=== PATIENT | female | born 1995 | race Caucasian/White ===

== ENCOUNTER 2018-07-16 03:37 | Emergency (ER) | payer OTHER ==
[2018-07-16] MEDS ORDERED: IBUPROFEN 200 MG TAB PO ONE (05:02)
[2018-07-16 05:19] LABS: Barbiturates NEGATIVE (NEGATIVE); Benzodiazepines NEGATIVE (NEGATIVE); Cocaine NEGATIVE (NEGATIVE); METHAMPHETAM NEGATIVE (NEGATIVE); Methadone NEGATIVE (NEGATIVE); Opiates NEGATIVE (NEGATIVE); Phencyclidine NEGATIVE (NEGATIVE); THC Cannibis NEGATIVE (NEGATIVE)
--- NOTE | 2018-07-16 05:39 | ER ---
Nurse's Notes [facility] Name: Bria Healy Age: 22 yrs Sex: Female : 1995 Arrival Date: 07/16/2018 Time: 03:42 Bed 5 Private MD: Beena Lee K Diagnosis: Abuse of non-psychoactive substances;Syncope and collapse;Superficial injury of head;Pain in left shoulder Presentation: 07/16 04:00 Presenting complaint: Patient states: she had a few drinks this evening and had smoked aa1 some marijuana and had a syncopal episode. Reports incident occurred around 0100 this am. States she also urinated on herself as well. C/O pain in L shoulder and L side of her head. Transition of care: patient was not received from another setting of care. Onset of symptoms was July 16, 2018 at 01:00. Risk Assessment: Do you want to hurt yourself or someone else? Patient reports no desire to harm self or others. Initial Sepsis Screen: Does the patient meet any 2 criteria? No. Patient's initial sepsis screen is negative. Does the patient have a suspected source of infection? No. Patient's initial sepsis screen is negative. Care prior to arrival: None. 04:00 Method Of Arrival: Ambulatory aa1 04:00 Acuity: ELILOTT 3 aa1 Historical: - Allergies: 04:04 PENICILLINS; aa1 - Home Meds: 04:04 Vyvanse 60 mg oral cap 1 cap once daily [Active]; CBD oil [Active]; aa1 - PMHx: 04:04 ADD/ADHD; aa1 - PSHx: 04:04 None; aa1 - Immunization history:: Adult Immunizations up to date. - Social history:: Smoking status: Patient/guardian denies using tobacco, Patient uses alcohol, only on a social basis. street drugs, marijuana. - Ebola Screening: : No symptoms or risks identified at this time. - Family history:: not pertinent. Screenin:06 Abuse screen: Denies threats or abuse. Denies injuries from another. Nutritional aa1 screening: No deficits noted. Tuberculosis screening: No symptoms or risk factors identified. Fall Risk None identified. Assessment: 04:06 General: Appears in no apparent distress. comfortable, Behavior is calm, cooperative, aa1 appropriate for age. Pain: Complains of pain in left side of head, anterior aspect of left shoulder and posterior aspect of left shoulder. Neuro: Level of Consciousness is awake, alert, obeys commands, Oriented to person, place, time, situation, Moves all extremities. Full function Gait is steady, Speech is normal, Pupils are PERRLA, Reports headache Denies blurred vision dizziness, diplopia. Cardiovascular: Denies chest pain, diaphoresis, palpitations, Heart tones S1 S2 present Rhythm is regular. Respiratory: Airway is patent Respiratory effort is even, unlabored, Respiratory pattern is regular, symmetrical. GI: No signs and/or symptoms were reported involving the gastrointestinal system. : No signs and/or symptoms were reported regarding the genitourinary system. EENT: No signs and/or symptoms were reported regarding the EENT system. Derm: Skin is intact, is healthy with good turgor, Skin is pink, warm \T\ dry. Musculoskeletal: Circulation, motion, and sensation intact. Capillary refill < 3 seconds, Range of motion: intact in all extremities. 05:00 Reassessment: Patient appears in no apparent distress at this time. Patient and/or aa1 family updated on plan of care and expected duration. Pain level reassessed. Patient is alert, oriented x 3, equal unlabored respirations, skin warm/dry/pink. Awaiting CT scan. 05:56 Reassessment: Patient appears in no apparent distress at this time. Patient and/or aa1 family updated on plan of care and expected duration. Pain level reassessed. Patient is alert, oriented x 3, equal unlabored respirations, skin warm/dry/pink. Pt has orders for d/c but CT has not been resulted yet. 06:55 Reassessment: Patient appears in no apparent distress at this time. Patient is alert, aa1 oriented x 3, equal unlabored respirations, skin warm/dry/pink. CT \T\ x-ray resulted. Per MD ok to d/c at this time. Discussed d/c \T\ f/u instructions with pt \T\ mother; denies questions or concerns at this time Patient states feeling better. Vital Signs: 04:04 BP 112 / 80; Pulse 95; Resp 16; Temp 97.9; Pulse Ox 100% on R/A; Weight 65.32 kg; aa1 Height 5 ft. 8 in. (172.72 cm); Pain 6/10; 05:04 BP 113 / 74; Pulse 68; Resp 18; Pulse Ox 99% on R/A; tl2 06:55 BP 117 / 65; Pulse 71; Resp 16; Pulse Ox 100% on R/A; Pain 2/10; aa1 04:04 Body Mass Index 21.89 (65.32 kg, 172.72 cm) aa1 ED Course: 03:42 Patient arrived in ED. al2 03:43 Beena Lee MD is Private Physician. al2 03:47 Navi Fournier MD is Attending Physician. maine 04:00 Winsome Nixon, RN is Primary Nurse. aa1 04:02 Triage completed. aa1 04:04 Arm band placed on right wrist. Patient placed in an exam room, on a stretcher. aa1 04:06 Patient has correct armband on for positive identification. Bed in low position. Call aa1 light in reach. Pulse ox on. NIBP on. 05:00 Urine collected: clean catch specimen. aa1 05:13 CT Head C Spine In Process Unspecified. EDMS 05:18 CT completed. Patient tolerated procedure well. Patient moved to CT via wheelchair. Patient moved back from CT. 05:25 X-ray completed. Patient tolerated procedure well. kw 05:26 Shoulder Left (2 View) XRAY In Process Unspecified. EDMS 05:39 Beena Lee MD is Referral Physician. [facility] 06:55 No provider procedures requiring assistance completed. Patient did not have IV access aa1 during this emergency room visit. Administered Medications: 05:03 Drug: Motrin 600 mg Route: PO; tl2 06:57 Follow up: Response: No adverse reaction; Pain is decreased aa1 Outcome: 05:39 Discharge ordered by . maine 06:55 Discharged to home ambulatory, with family. aa1 06:55 Condition: good 06:55 Discharge instructions given to patient, family, Instructed on discharge instructions, follow up and referral plans. medication usage, Demonstrated understanding of instructions, follow-up care, medications, Prescriptions given X 1. 06:58 Patient left the ED. aa1 Signatures: Dispatcher [employer] EDMS Winsome Nixon RN RN aa1 Navi Fournier MD MD cha Hagler, Ervin Ashley Baugh Shakila Romano RN RN tl2 Love, Chani al2
--- NOTE | 2018-07-16 05:39 | EDPHYS ---
Physician Documentation [facility] Name: Bria Healy Age: 22 yrs Sex: Female : 1995 Arrival Date: 07/16/2018 Time: 03:42 Bed 5 Private MD: Beena Lee K ED Physician Navi Fournier HPI: 07/16 04:37 This 22 yrs old Female presents to ER via Ambulatory with complaints of maine Syncope, Head Injury-Adult. 04:37 The patient has experienced syncope, became unresponsive, collapsed. Onset: The maine symptoms/episode began/occurred just prior to arrival. Duration: This was a single episode, that lasted 10 minute(s). Context: the episode(s) was witnessed, by a friend, occurred constitution party. Associated injury: Head/face: Left upper extremity: anterior aspect of left shoulder and posterior aspect of left shoulder. Associated signs and symptoms: The patient has no apparent associated signs or symptoms. The patient has not experienced similar symptoms in the past. Historical: - Allergies: 04:04 PENICILLINS; aa1 - Home Meds: 04:04 Vyvanse 60 mg oral cap 1 cap once daily [Active]; CBD oil [Active]; aa1 - PMHx: 04:04 ADD/ADHD; aa1 - PSHx: 04:04 None; aa1 - Immunization history:: Adult Immunizations up to date. - Social history:: Smoking status: Patient/guardian denies using tobacco, Patient uses alcohol, only on a social basis. street drugs, marijuana. - Ebola Screening: : No symptoms or risks identified at this time. - Family history:: not pertinent. ROS: 04:37 Constitutional: Negative for fever, chills, and weight loss, Eyes: Negative for injury, maine pain, redness, and discharge, ENT: Negative for injury, pain, and discharge, Neck: Negative for injury, pain, and swelling, Cardiovascular: Negative for chest pain, palpitations, and edema, Respiratory: Negative for shortness of breath, cough, wheezing, and pleuritic chest pain, Abdomen/GI: Negative for abdominal pain, nausea, vomiting, diarrhea, and constipation, Back: Negative for injury and pain, : Negative for injury, bleeding, discharge, and swelling, MS/Extremity: Negative for injury and deformity, Skin: Negative for injury, rash, and discoloration, Psych: Negative for depression, anxiety, suicide ideation, homicidal ideation, and hallucinations, Allergy/Immunology: Negative for hives, rash, and allergies, Endocrine: Negative for neck swelling, polydipsia, polyuria, polyphagia, and marked weight changes. 04:37 Neuro: Positive for headache, syncope, of the left quaker. Exam: 04:37 Constitutional: This is a well developed, well nourished patient who is awake, alert, maine and in no acute distress. Eyes: Pupils equal round and reactive to light, extra-ocular motions intact. Lids and lashes normal. Conjunctiva and sclera are non-icteric and not injected. Cornea within normal limits. Periorbital areas with no swelling, redness, or edema. ENT: Nares patent. No nasal discharge, no septal abnormalities noted. Tympanic membranes are normal and external auditory canals are clear. Oropharynx with no redness, swelling, or masses, exudates, or evidence of obstruction, uvula midline. Mucous membranes moist. Neck: Trachea midline, no thyromegaly or masses palpated, and no cervical lymphadenopathy. Supple, full range of motion without nuchal rigidity, or vertebral point tenderness. No Meningismus. Chest/axilla: Normal chest wall appearance and motion. Nontender with no deformity. No lesions are appreciated. Cardiovascular: Regular rate and rhythm with a normal S1 and S2. No gallops, murmurs, or rubs. Normal PMI, no JVD. No pulse deficits. Respiratory: Lungs have equal breath sounds bilaterally, clear to auscultation and percussion. No rales, rhonchi or wheezes noted. No increased work of breathing, no retractions or nasal flaring. Abdomen/GI: Soft, non-tender, with normal bowel sounds. No distension or tympany. No guarding or rebound. No evidence of tenderness throughout. Back: No spinal tenderness. No costovertebral tenderness. Full range of motion. Female : Normal external genitalia. Skin: Warm, dry with normal turgor. Normal color with no rashes, no lesions, and no evidence of cellulitis. Neuro: Awake and alert, GCS 15, oriented to person, place, time, and situation. Cranial nerves II-XII grossly intact. Motor strength 5/5 in all extremities. Sensory grossly intact. Cerebellar exam normal. Normal gait. 04:37 Head/face: Noted is contusion, that is superficial, of the left quaker. 04:37 Musculoskeletal/extremity: ROM: limited active range of motion, limited passive range of motion, in the anterior aspect of left shoulder and posterior aspect of left shoulder, Circulation is intact in all extremities. Sensation intact. Compartment Syndrome exam of affected extremity: is normal. DVT Exam: no swelling, negative Homans' sign noted on exam, no appreciated bluish discoloration, no erythema, no increased warmth, pain, tenderness. Vital Signs: 04:04 BP 112 / 80; Pulse 95; Resp 16; Temp 97.9; Pulse Ox 100% on R/A; Weight 65.32 kg; aa1 Height 5 ft. 8 in. (172.72 cm); Pain 6/10; 05:04 BP 113 / 74; Pulse 68; Resp 18; Pulse Ox 99% on R/A; tl2 06:55 BP 117 / 65; Pulse 71; Resp 16; Pulse Ox 100% on R/A; Pain 2/10; aa1 04:04 Body Mass Index 21.89 (65.32 kg, 172.72 cm) aa1 MDM: 03:47 Patient medically screened. [facility] 04:40 Data reviewed: vital signs, nurses notes, lab test result(s), radiologic studies, [facility] doppler, plain films. 07/16 04:36 Order name: UDS; Complete Time: 05:33 [facility] 07/16 05:01 Order name: Urine Dipstick--Ancillary (enter results) ms 07/16 04:36 Order name: CT Head C Spine [facility] 07/16 04:36 Order name: Shoulder Left (2 View) XRAY [facility] 07/16 04:36 Order name: Urine Dipstick-Ancillary (obtain specimen); Complete Time: 04:59 [facility] 07/16 04:36 Order name: Urine Test (obtain specimen); Complete Time: 04:59 [facility] 07/16 04:36 Order name: PO challenge: juice; Complete Time: 05:03 [facility] Administered Medications: 05:03 Drug: Motrin 600 mg Route: PO; tl2 06:57 Follow up: Response: No adverse reaction; Pain is decreased aa1 Disposition: 07/16/18 05:39 Discharged to Home. Impression: Abuse of non-psychoactive substances, Syncope and collapse, Superficial injury of head, Pain in left shoulder. - Condition is Stable. - Discharge Instructions: Head Injury, Pediatric, Substance Use Disorder, Shoulder Pain, Head Injury, Pediatric, [id number], Syncope, Itjh-kv-[id number], Weakness, [id number]. - Prescriptions for Motrin IB 200 mg Oral Tablet - take 2 tablet by ORAL route every 6 hours As needed as needed with food; 30 tablet. - Medication Reconciliation Form, Thank You Letter, Antibiotic Education, Prescription Opioid Use form. - Follow up: Beena Lee; When: 2 - 3 days; Reason: Recheck today's complaints, Continuance of care, Re-evaluation by your physician. - Problem is new. - Symptoms have improved. Signatures: Dispatcher [employer] EDMS Winsome Nixon RN RN aa1 Navi Fournier MD MD cha Knox, Taylor RN RN tl2 Corrections: (The following items were deleted from the chart) 05:07 05:02 TEST, SERUM+[id number].LAB.BRZ ordered. EDKS EDKS 06:58 05:39 07/16/2018 05:39 Discharged to Home. Impression: Abuse of non-psychoactive aa1 substances; Syncope and collapse; Superficial injury of head; Pain in left shoulder. Condition is Stable. Discharge Instructions: Head Injury, Pediatric, Substance Use Disorder, Shoulder Pain, Head Injury, Pediatric, [id number], Syncope, Sahi-py-Adec, Weakness, Anfo-ca-Lnfq. Prescriptions for Motrin IB 200 mg Oral Tablet - take 2 tablet by ORAL route every 6 hours As needed as needed with food; 30 tablet. and Forms are Medication Reconciliation Form, Thank You Letter, Antibiotic Education, Prescription Opioid Use. Follow up: Beena Lee; When: 2 - 3 days; Reason: Recheck today's complaints, Continuance of care, Re-evaluation by your physician. Problem is new. Symptoms have improved. maine
--- NOTE | 2018-07-16 08:43 | RAD REPORT ---
EXAM DESCRIPTION: CT - [id number] - 07/16/2018 7:06 am CLINICAL HISTORY: Trauma, head and neck injury. PAIN COMPARISON: No comparisons TECHNIQUE: Axial 5 mm thick images of the head were obtained. Axial 2 mm thick images of the cervical spine were obtained with sagittal and coronal reconstruction images generated and reviewed. All CT scans are performed using dose optimization technique as appropriate and may include automated exposure control or mA/KV adjustment according to patient size. FINDINGS: CT HEAD WITHOUT CONTRAST: No acute hemorrhage, hydrocephalus or extra-axial collection is identified.No areas of brain edema or midline shift. The paranasal sinuses and mastoids are clear.The calvarium is intact. CT CERVICAL SPINE WITHOUT CONTRAST: No fracture or subluxation.No prevertebral soft tissues swelling is identified. IMPRESSION: No acute intracranial or cervical spine findings.
--- NOTE | 2018-07-16 08:44 | RAD REPORT ---
EXAM DESCRIPTION: RAD - Shoulder Left 2 View - 07/16/2018 5:26 am CLINICAL HISTORY: PAIN COMPARISON: No comparisons FINDINGS: No fracture or dislocation is seen.
[2018-07-16 12:20] LABS: Urine Blood NEGATIVE (NEG); Urine Glucose NEGATIVE (NEG); Urine Protein NEGATIVE (NEG); Urine Specific Gravity <1.005 (1.005-1.030)
== END 2018-07-16 06:58 | disposition home or self-care (01) ==
LOC: ER 03:37
DX: S00.90XA Unspecified superficial injury of unspecified part of head, initial encounter (principal); F55.8 Abuse of other non-psychoactive substances; M25.512 Pain in left shoulder; W18.30XA Fall on same level, unspecified, initial encounter; Y93.89 Activity, other specified; Y92.89 Other specified places as the place of occurrence of the external cause; Z88.0 Allergy status to penicillin; F90.9 Attention-deficit hyperactivity disorder, unspecified type
CPT/HCPCS: 70450; 72125; 80307; 81003; 99284